=== PATIENT | male | born 1990 | race Caucasian/White ===

== ENCOUNTER 2023-08-14 10:30 | Emergency (ER) | payer OTHER, SELFPAY ==
[2023-08-14] VITALS (16 sets, daily range): BP systolic 84–124; BP diastolic 42–76; PULSE 71–144; RESP 16–18; TEMP 37.3–38.6; O2SAT 96–98; BMI 26.6
--- NOTE | 2023-08-14 10:46 | PC.NURSE ---
family at BS at this time
--- NOTE | 2023-08-14 10:56 | PC.NURSE ---
FSBS 98
--- NOTE | 2023-08-14 11:19 | PC.NURSE ---
DR BRISENO AT BEDSIDE
--- NOTE | 2023-08-14 11:32 | ED_ITS ---
Discharge Plan Disposition Patient Disposition: Xfer Other Condition: Fair Referrals Follow up/Referrals: Provider,Referral, MD [Primary Care Provider] - See instructions Clinical Impressions Clinical Impression: RENETTA (acute kidney injury), Acute renal failure, Cystitis, Scrotal ulcer, Elevated C-reactive protein, Elevated erythrocyte sedimentation rate, Septic shock Discharge ED Provider: Tr Garcia Adult HPI General Chief complaint: Skin/Abscess/Foreign Body Stated complaint: possible spider bite Time Seen by Provider: 08/14/23 11:16 Mode of Arrival: EMS Source of Information: EMS Limitations: No Limitations Description of Symptoms (Recalled from ER Triage Doc. by RN): EMS states they were called related to an insect bite to his scrotum, weight loss and fever. Patient with Down's Syndrome and not communicating with staff. History of Present Illness HPI narrative: 33-year-old male with past medical history significant for Down syndrome presents today with caregivers for evaluation concerning spider bite on the scrotum which caregiver states occurred 3 days ago. She states that she saw a black hairy spider bite the patient. States that he has also lost weight over the past 3 days. Also notes that patient has had fever. Has continued to tolerate oral intake and otherwise appears to be at baseline. No further complaints. Related Data Allergies Allergy/AdvReac Type Severity Reaction Status Date / Time No Known Allergies Allergy Verified 08/14/23 10:43 [facility] Disclaimer: The information contained in this section may have been updated after the patient was seen, as this information can be updated by other users. Social History Smoking Status: Never smoker alcohol intake: never current occupational status: unemployed Travel in the last 8 weeks: None ROS Obtained: Yes All systems reviewed & no additional complaints except as documented Physical Exam General General appearance: alert and in no apparent distress Head Head exam: atraumatic and normocephalic Eye Eye exam: Present normal appearance, PERRL and EOMI ENT ENT exam: Present normal oropharynx and mucous membranes moist Neck Neck exam: Present full ROM; Absent meningismus Respiratory Respiratory exam: Absent respiratory distress, wheezes, stridor or accessory muscle use Cardiovascular Cardiovascular exam: Present normal rhythm and tachycardia Abdominal Exam Abdominal exam: Present soft; Absent distention, tenderness, guarding, rebound or rigidity exam: Present other (Uncircumcised, there is a small ulceration on the right side of the scrotum with scant purulent drainage noted. No scrotal edema. Mild scrotal erythema) Neurological Exam Neurological exam: Present alert, CN II-XII intact and other (At baseline); Absent motor sensory deficit Psychiatric Psychiatric exam: Present normal affect and normal mood Skin Skin exam: Present warm and dry Medical Decision Making Medical Records Medical records reviewed: Yes I reviewed the patient's medical records. Felipe Inquiry Pt receiving controlled substance: No Felipe was queried for this patient: No Vital Signs: 08/14/23 10:30 08/14/23 10:45 08/14/23 11:01 Temperature 101.5 F H Temperature Source Rectal Pulse Rate 144 H Pulse Rate [Radial] 76 Respiratory Rate 16 18 Blood Pressure 105/42 L 113/66 Blood Pressure Mean 81 02 Sat by Pulse Oximetry 98 Oxygen Delivery Method Room Air 08/14/23 12:12 08/14/23 13:01 08/14/23 13:30 Temperature Temperature Source Pulse Rate 130 H 100 H Pulse Rate [Radial] Respiratory Rate 18 Blood Pressure 100/54 L 84/46 L 90/65 L Blood Pressure Mean 69 58 70 02 Sat by Pulse Oximetry Oxygen Delivery Method 08/14/23 14:51 Temperature Temperature Source Pulse Rate 107 H Pulse Rate [Radial] Respiratory Rate Blood Pressure 103/54 L Blood Pressure Mean 70 02 Sat by Pulse Oximetry Oxygen Delivery Method Lab Data Lab Results 08/14/23 11:40: WBC 19.0 H, RBC 3.82 L, Hgb 11.3 L, Hct 36.4 L, MCV 95.3 H, MCH 29.6, MCHC 31.0 L, RDW 16.7, Plt Count 164, MPV 10.6 H, Neut % (Auto) 85.3 H, L ymph % (Auto) 9.1 L, [place] % (Auto) 4.0, Eos % (Auto) 1.0, Baso % (Auto) 0.7, N eut # (Auto) 16.2 H, Lymph # (Auto) 1.7, [place] # (Auto) 0.8, Eos # (Auto) 0.2, Baso # (Auto) 0.1, Total Counted 100, Neutrophils % (Manual) 77 H, Band Neutrophils % 6.0, Lymphocytes % (Manual) 4 L, Monocytes % (Manual) 12 H, Eosinophils % (Manual) 1, Platelet Estimate Normal, RBC Morphology Not Reportable, Anisocytosis 1+, Macrocytosis 1+, ESR > 140 H, PT 12.8 H, INR 1.20 H , APTT 29.2, Sodium 143, Potassium 5.3 H, Chloride 111 H, Carbon Dioxide 22, A [place] 15.3 H, BUN 63 H, Creatinine 4.50 H, Estimated Creat Clear 24, E stimated GFR 15 L*, Est GFR ( Amer) 18 L*, Glucose 117 H, Calcium 9.0, Total Bilirubin 0.7, AST 28, ALT 17, Alkaline Phosphatase 87, Total Creatine Kinase 153, C-Reactive Protein 253.7 H, Total Protein 7.6, Albumin 3.4 L, G lobulin 4.2 H, Albumin/Globulin Ratio 0.8 L 08/14/23 11:40 08/14/23 11:40 Orders (Tests/Meds): ED MEDICATIONS Generic Name Dose Route Start Last Admin Trade Name Freq PRN Reason Stop Dose Admin Norepinephrine/Dextrose 8 mg in 250 mls @ 3.75 mls/hr 08/14/23 14:46 Norepinephrine 8mg/250ml-D5w Premix IV 09/13/23 14:45 .Q24H EMILY Protocol 2 MCG/MIN Discontinued Medications Generic Name Dose Route Start Last Admin Trade Name Freq PRN Reason Stop Dose Admin Acetaminophen 1,000 mg 08/14/23 11:28 08/14/23 11:50 Acetaminophen 325mg/10.15ml Udc PO 08/14/23 11:29 1,000 mg ONCE ONE Administration Sodium Chloride 2,180 mls @ 1,090 mls/hr 08/14/23 12:36 08/14/23 13:32 Sod Chlor 0.9% 1000ml Bag 30 ml/kg infuse over 2 hr (2180 ml) 08/14/23 14:35 1,090 mls/hr IV Administration .Q2H ONE Piperacillin Sod/Tazobactam 100 mls @ 200 mls/hr 08/14/23 12:36 08/14/23 13:47 Sod 4.5 gm/ Sodium Chloride IV 08/14/23 13:05 200 mls/hr ONCE ONE Administration Vancomycin/PEG/NADA/Lysine/Water 1.25 gm in 250 mls @ 125 mls/hr 08/14/23 13:00 08/14/23 14:43 Vancomycin 1.25gm/250ml (Peg) Premix IV 08/14/23 14:59 125 mls/hr ONCE ONE Administration Miscellaneous 1 each 08/14/23 12:45 Vancomycin Consult Request NOTAPPLIC 09/13/23 12:44 CONSULT PHARMACY EMILY ORDERS Category Date Time Status CT abdomen pelvis wo con Stat Cat Scan 08/14/23 13:00 Completed Activated Partial Thrombo Time Stat Lab 08/14/23 11:40 Completed CBC w/Auto Diff [Complete Blood Count Auto Diff] Stat Lab 08/14/23 11:40 Completed CMP [Comprehensive Metabolic Panel] Stat Lab 08/14/23 11:40 Completed CRP [C-Reactive Protein] Stat Lab 08/14/23 11:40 Completed Creatine Kinase Stat Lab 08/14/23 11:40 Completed ESR [Erythrocyte Sedimentation Rate] Stat Lab 08/14/23 11:40 Completed Prothrombin Time INR Stat Lab 08/14/23 11:40 Completed Rapid PCR Covid and Flu A/B Stat Lab 08/14/23 13:30 Received UA [Urinalysis and Microscopic] Stat Lab 08/14/23 11:32 Ordered Blood Culture Stat Micro 08/14/23 13:44 Received ECG Data Tracing #1: I reviewed this ECG and interpreted as documented below: EKG personally stated by me. Sinus tachycardia with rate of 130 bpm. No ischemic changes. Medical Decision Narrative: 33-year-old male with past medical history significant for Down syndrome presents today with caregivers for evaluation concerning spider bite on the scrotum which caregiver states occurred 3 days ago. She states that she saw a black hairy spider bite the patient. States that he has also lost weight over the past 3 days. Also notes that patient has had fever. Has continued to tolerate oral intake and otherwise appears to be at baseline. Of note, patient's caregiver notes that patient did have bloody urine over the past 2 days. On assessment he was well-appearing. He was tachycardic. Febrile. Abdomen was soft nondistended and did not appear to be tender to palpation. His chest was clear to station bilaterally. exam revealed an ulceration with scant purulent drainage noted on the right side of the scrotum. Minimal erythema. No scrotal edema. Differential diagnoses include not limited to NSTI, sepsis, UTI, nephrolithiasis, infected stone, cellulitis, spider bite, among others. Patient's lab workup today shows a WBC of 19. Hemoglobin of 11.3. ESR greater than 140. Potassium 5.3. Creatinine elevated at 4.5 with GFR of 15, indicating renal failure. CRP elevated at 253.7. Patient was given a sepsis bolus while in the ED and was also started on broad-spectrum antibiotics vancomycin and Zosyn. I did order for CT scan without contrast and it showed severe thickening of the urinary bladder wall suggesting severe cystitis. This likely contributes to patient's symptoms today and his lab findings. Moderate bilateral hydronephrosis and hydroureter with no renal stone identified. I did calculate an LRINEC score of 8. I did discuss patient's case with general surgery on-call and discussed management and he did recommend that if there are concerns for early NSTI in the setting of the patient's lab findings, would be appropriate to transfer to higher care facility for further management. Did reassess patient's blood pressure and he was noted to be 103/54 with maps in the 70s. Will continue to monitor. I did speak with Dr. Gay at [facility] and discussed management and transfer was accepted to [facility]. I did discuss workup as well as plan with patient's caregivers and they were agreeable. Patient at this time remains stable. Critical Care Critical Care Time Critical Care Time: Yes Attestation: On 08/14/23, the high probability of a clinically significant, sudden or life threatening deterioration of the following system(s): circulatory, required my full and direct attention, intervention and personal management. The time I documented below is in addition to time spent performing reported procedures but includes the following listed in this critical care notation. Total Time Total Critical Care Time: 35
[2023-08-14] MEDS: ACETAMINOPHEN 325MG/10.15ML UDC 1000 MG PO (11:50)
[2023-08-14 11:56] LABS: Chloride 111 mmol/L (98-107); Potassium 5.3 mmoL/L (3.5-5.1); Sodium 143 mmol/L (136-145)
[2023-08-14 11:59] LABS: Alanine Aminotransferase 17 U/L (12-78); Albumin Level 3.4 g/dl (3.5-5.0); Albumin/Globulin Ratio 0.8 (1.1-1.8); Alkaline Phosphatase 87 U/L (38-126); Anion Gap 15.3 mEq/L (5-15); Aspartate Amino Transferase 28 U/L (17-59); Bilirubin,Total 0.7 mg/dl (0.2-1.3); Blood Urea Nitrogen 63 mg/dl (9-20); Carbon Dioxide 22 mmol/L (22.0-30.0); Creatinine Clearance Estimated 24 mL/min (50-200); Estimated Glomerular Filt Rate 15 ml/min (>60); GFR (African American) 18 ML/MIN (>60); Globulin 4.2 g/dL (1.3-3.2); Glucose 117 mg/dl (74-100); Total Protein,Serum 7.6 g/dl (6.3-8.2)
[2023-08-14 12:05] LABS: C-Reactive Protein 253.7 mg/L (0-4)
--- NOTE | 2023-08-14 12:53 | PC.NURSE ---
PT RESTLESS AND NOT TOLERATING WEARING BLOOD PRESSURE CUFF AND PULSE OX. FAMILY AT BEDSIDE HELPING CONSOLE PT AND ASSIST WITH CARE. PT NON-VERBAL WITH DOWN SYNDROME. CURRENT B/P 134/112, PT ROCKING IN BED AND KEEPING ARM BENT
[2023-08-14 12:57] LABS: Activated Partial Thrombo Time 29.2 seconds (22.8-30.6); Prothrombin Time 12.8 seconds (10.1-12.5)
[2023-08-14 12:58] LABS: Creatine Kinase 153 U/L (55-170)
--- NOTE | 2023-08-14 13:00 | CT_ITS ---
PROCEDURE INFORMATION: Exam: CT Abdomen And Pelvis Without Contrast Exam date and time: 08/14/2023 1:19 PM Age: 33 years old Clinical indication: Other: Hematuria; Additional info: Hematuria/assess for stones, possible scrotal inf TECHNIQUE: Imaging protocol: Computed tomography of the abdomen and pelvis without contrast. Radiation optimization: All CT scans at this facility use at least one of these dose optimization techniques: automated exposure control; mA and/or kV adjustment per patient size (includes targeted exams where dose is matched to clinical indication); or iterative reconstruction. COMPARISON: No relevant prior studies available. FINDINGS: Liver: Normal. No mass. Gallbladder and bile ducts: Normal. No calcified stones. No ductal dilation. Pancreas: Normal. No ductal dilation. Spleen: Normal. No splenomegaly. Adrenal glands: Poorly visualized Kidneys and ureters: Moderate bilateral hydronephrosis and bilateral hydroureter. No obstructing stones are identified. Stomach and bowel: Unremarkable. No obstruction. No mucosal thickening. Appendix: No evidence of appendicitis. Intraperitoneal space: Unremarkable. No free air. No significant fluid collection. Vasculature: Unremarkable. No abdominal aortic aneurysm. Lymph nodes: Several small retroperitoneal lymph nodes and inguinal lymph nodes, nonspecific but likely reactive. Urinary bladder: Severe circumferential thickening of the urinary bladder guerra. No visible gas in the urinary bladder guerra. The findings are concerning for a significant cystitis. Reproductive: Unremarkable as visualized. Bones/joints: Unremarkable. No acute fracture. Soft tissues: Unremarkable. IMPRESSION: 1. Severe circumferential thickening of the urinary bladder wall suggesting a severe cystitis. 2. Moderate bilateral hydronephrosis and hydroureter. No nephroureteral calculi are identified. The obstructive uropathy is likely secondary to the severe urinary bladder wall thickening producing extrinsic compression on the distal ureters.
--- NOTE | 2023-08-14 13:10 | PC.NURSE ---
PT TO CT
[2023-08-14 13:19] LABS: Erythrocyte Sedimentation Rate > 140 mm/hr (0-15)
[2023-08-14 13:28] LABS: Basophils # 0.1 K/mm3 (0-0.2); Basophils % 0.7 % (0.1-2.0); Eosinophils # 0.2 K/mm3 (0.0-0.4); Hematocrit 36.4 % (42.0-52.0); Hemoglobin 11.3 g/dL (14.1-18.0); Lymphocytes # 1.7 K/mm3 (0.7-4.5); Lymphocytes % 9.1 % (10-50); MANUAL DIFFERENTIAL MANUAL DIFFERENTIAL (MANUAL DIFF); Mean Corpuscular Hemoglobin 29.6 pg (27.0-31.2); Mean Corpuscular Volume 95.3 fl (80-94); Mean Platelet Volume 10.6 fl (7.4-10.4); Monocytes # 0.8 K/mm3 (0.1-1.0); Neutrophils # 16.2 K/mm3 (1.8-7.8); Neutrophils % 85.3 % (37.0-80.0); Platelet Count 164 K/mm3 (142-424); Red Blood Count 3.82 M/mm3 (4.60-6.20); Red Cell Distribution Width 16.7 % (11.5-17.5)
--- NOTE | 2023-08-14 13:28 | PC.NURSE ---
pt back from rad at this time
--- NOTE | 2023-08-14 13:28 | PC.NURSE ---
back from rad
--- NOTE | 2023-08-14 13:29 | PC.NURSE ---
paged general surgery
--- NOTE | 2023-08-14 13:30 | PC.NURSE ---
Dr. Garcia s/w Dr. Vanegas for a gen surg consult
[2023-08-14] MEDS: 0.9 % SODIUM CHLORIDE 1000ML 2,180 ML 1090 ML IV (13:32)
[2023-08-14 13:34] LABS: Coronavirus 19, PCR Not Detected (NotDetected); Influenza A, PCR Not Detected (NotDetected); Influenza B, PCR Not Detected (NotDetected)
--- NOTE | 2023-08-14 13:35 | PC.NURSE ---
Asked radiology to power share images to [facility] and prepare a disc
[2023-08-14] MEDS: PIPERACILLIN/TAZO 4.5 GM in 0.9 % SODIUM CHLORIDE 100 ML IV (13:47)
--- NOTE | 2023-08-14 14:10 | PC.NURSE ---
[facility]
--- NOTE | 2023-08-14 14:13 | PC.NURSE ---
[place] speaking with Dr gonzalez at [facility]
[2023-08-14 14:27] LABS: Eosinophils % 1 % (0-3); Lymphocytes % 4 % (10-50); Monocytes % 12 % (2-9); Neutrophils % 77 % (42-76); Total Cells Counted 100
[2023-08-14 14:28] LABS: Platelet Estimate Normal
[2023-08-14 14:29] LABS: Anisocytosis 1+; Macrocytosis 1+
[2023-08-14] MEDS: VANCOMYCIN/WATER FOR INJ (PEG) 1.25 GM/250 ML PIGGYBACK IV (14:43)
--- NOTE | 2023-08-14 14:53 | PC.NURSE ---
Dr. Garcia notified of updated BP 103/54. Pt's fluid bolus still infusing.
--- NOTE | 2023-08-14 17:49 | PC.NURSE ---
[facility] here to [facility]
== END 2023-08-14 18:03 | disposition other institution (70) ==
PROVIDERS: Emergency Provider Emergency Medicine
DX: A41.89 Other specified sepsis (principal); R65.21 Severe sepsis with septic shock; B96.29 Other Escherichia coli [E. coli] as the cause of diseases classified elsewhere; N50.89 Other specified disorders of the male genital organs; N13.4 Hydroureter; N13.30 Unspecified hydronephrosis; N30.00 Acute cystitis without hematuria; N17.9 Acute kidney failure, unspecified; R70.0 Elevated erythrocyte sedimentation rate; R79.82 Elevated C-reactive protein (CRP); R00.0 Tachycardia, unspecified; R50.9 Fever, unspecified; Q90.9 Down syndrome, unspecified
CPT/HCPCS: 74176; 80053; 82550; 85007; 85025; 85610; 85651; 85730; 86140; 87040; 87636; 96365; 96366; 96367; 99291; J2543